=== PATIENT | male | born 1990 ===

== ENCOUNTER 2017-08-08 19:28 | Emergency (ER) | payer OTHER, SELFPAY ==
[2017-08-08] MEDS ORDERED: Fluorescein Opthalmic Strip ONE (19:37)
[2017-08-08] MEDS ORDERED: Gentamicin Ophth Soln 0.3% 5 ml Bottle ONE (19:55)
== END 2017-08-08 20:01 | disposition home or self-care (01) ==
LOC: BURERS 19:28
DX: T15.91XA Foreign body on external eye, part unspecified, right eye, initial encounter (principal); X58.XXXA Exposure to other specified factors, initial encounter
CPT/HCPCS: 99283